=== PATIENT | male | born 1980 | race Caucasian/White ===

== ENCOUNTER 2022-02-25 22:01 | Emergency (ER) | payer OTHER ==
[2022-02-25] MEDS ORDERED: Tegretol 200 MG PO ONE (22:47)
--- NOTE | 2022-02-25 22:55 | ERPHSYRPT ---
- History of Present Illness Time Seen by Provider: 02/25/22 22:49 Source: patient, family Exam Limitations: no limitations Patient Subjective Stated Complaint: pt states he has been experiencing pain in left side of face intermittenly for the last three weeks. has gottn worse today. Triage Nursing Assessment: pt is in bed holding left side of face and states pain is 7/10. 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 Today was much worse. He did take a gabapentin pill from his . He is states in the emergency department, at the time of my examination, that he actually feels as though he may be that medication is starting to kick in. He has never had a acute episode like this in the past. He denies head injury. He does not have an earache. He originally thought that this was a dental issue but the pain is sharp and stabbing in in his entire left side of his face. He did not suffer any traumatic injury to the area. Timing/Duration: week(s) (3-1/2 weeks), worse Severity: moderate Character of Deficits: none Baseline/Normal Cognition: alert oriented x 3 Current Cognition: alert oriented x 3 Baseline Gait: walks w/o assistance Associated Symptoms: denies symptoms Allergies/Adverse Reactions: No Known Drug Allergies Allergy (Unverified 02/25/22 22:27) Immunizations Up to Date: Yes Travel Risk - International Travel Have you traveled outside of the country in past 3 weeks: No - Coronavirus Screening Are you exhibiting any of the following symptoms?: No Close contact with a COVID-19 positive Pt in past 14-21 Days: No - Vaccine Status Have you recieved a Covid-19 vaccination: Yes [employer]: Moderna - Vaccination Dates Date of 2cond Vaccination (if applicable): unknown - Review of Systems Constitutional: No Symptoms Eyes: No Symptoms Ears, Nose, & Throat: No Symptoms Respiratory: No Symptoms Cardiac: No Symptoms Abdominal/Gastrointestinal: No Symptoms Genitourinary Symptoms: No Symptoms Musculoskeletal: No Symptoms Skin: No Symptoms Neurological: Other (Left facial pain) Psychological: No Symptoms Endocrine: No Symptoms Hematologic/Lymphatic: No Symptoms Immunological/Allergic: No Symptoms All Other Systems: Reviewed and Negative - Past Medical History Pertinent Past Medical History: Yes Cardiac History: High Cholesterol, Hypertension Endocrine Medical History: Diabetes Type II - Past Surgical History Past Surgical History: Yes - Social History Smoking Status: Current every day smoker How long have you smoked: 20 Drug Use: none - Nursing Vital Signs Nursing Vital Signs: Initial Vital Signs Temperature 97.4 F 02/25/22 22:19 Pulse Rate 100 H 02/25/22 22:19 Respiratory Rate 18 02/25/22 22:19 Blood Pressure 164/97 02/25/22 22:19 O2 Sat by Pulse Oximetry 99 02/25/22 22:19 Pain Scale Pain Intensity 7 - Inlet Coma Scale Best Eye Response (Inlet): (4) open spontaneously Best Verbal Response (Inlet): (5) oriented Best Motor Response (Inlet): (6) obeys commands Kristy Total: 15 - Physical Exam General Appearance: mild distress, alert, anxiety Eye Exam: bilateral eye: normal inspection, PERRL, EOMI Ears, Nose, Throat Exam: normal ENT inspection, moist mucous membranes Neck Exam: normal inspection, non-tender, supple, full range of motion Respiratory: normal breath sounds, lungs clear, airway intact, No chest tenderness, No respiratory distress Cardiovascular: regular rate/rhythm, normal heart sounds, normal peripheral pulses Gastrointestinal: soft, normal bowel sounds, No tenderness Rectal Exam: not done Back Exam: normal inspection, normal range of motion, No CVA tenderness, No vertebral tenderness Extremity Exam: normal inspection, normal range of motion, pelvis stable Mental Status: alert, oriented 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, 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 Exam: normal hearing, normal speech, PERRL, tongue midline Coordination/Gait: normal finger to nose, normal gait, normal cerebellar function Motor/Sensory: no motor deficit, no sensory deficit, no pronator drift Skin Exam: normal color, warm, dry SpO2 Interpretation: normal SpO2: 99 O2 Delivery: Room Air - Course Nursing assessment & vital signs reviewed: Yes Ordered Tests: Medication Summary Generic Name Dose Route Start Last Admin Trade Name Freq PRN Reason Stop Dose Admin Amitriptyline HCl 25 mg 02/26/22 22:48 Amitriptyline Hcl 25 Mg Tablet PO 02/26/22 22:49 STAT ONE Discontinued Medications Generic Name Dose Route Start Last Admin Trade Name Freq PRN Reason Stop Dose Admin Carbamazepine 100 mg 02/25/22 22:47 Carbamazepine 200 Mg Tablet PO 02/25/22 22:48 STAT ONE - Progress Progress: improved, pain not gone completely, re-examined Progress Note: 02/25/22 22:53 Medical decision making: 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 He does not appear to have any type of TIA or CVA. There is been no trauma to the area. His clinical picture fits more with trigeminal neuralgia. We will treat him this way. We will provide the patient with amitriptyline and Tegretol in the emergency room here as these medicines will treat his nerve pain. We will avoid narcotics and steroids as they are not as effective in pain control. He will follow-up with Yvette Pérez, his nurse practitioner tomorrow morning Counseled pt/family regarding: diagnosis, need for follow-up - Departure Departure Disposition: Home Clinical Impression: Trigeminal neuralgia of left side of face Condition: Stable Critical Care Time: No Referrals: EMBER PÉREZ, ELMER [Primary Care Provider] - Follow up/PCP as directed Additional Instructions: Follow up with Yvette Pérez tomorrow morning to obtain a follow-up appointment for further evaluation management. Prescriptions: Amitriptyline HCl 25 mg PO HS #2 tablet carBAMazepine [Tegretol] 200 mg PO HS #3 tablet
[2022-02-25 23:11] VITALS: BP 164/103; PULSE 78; O2SAT 100
[2022-02-26] MEDS ORDERED: AMITRIPTYLINE 25 MG TABLET PO ONE (22:48)
== END 2022-02-25 23:14 | disposition home or self-care (01) ==
LOC: ED 22:01
DX: G50.0 Trigeminal neuralgia (principal); E78.5 Hyperlipidemia, unspecified; I10 Essential (primary) hypertension; E11.9 Type 2 diabetes mellitus without complications; Z72.0 Tobacco use
CPT/HCPCS: 99281; A9270-GY